=== PATIENT | male | born 1975 | race Two or more races ===

== ENCOUNTER 2024-08-26 16:14 | Outpatient (OUT) | payer BC, SELFPAY ==
--- NOTE | 2024-08-26 | XR_ITS ---
[address] [address] Patient Name: NICOLE CEDILLO MRN: [id number] date: 1975 Sex: M Assigned Patient Location: [facility] Current Patient Location: [facility] Accession/Order Number: [id number] Exam Date: 08/26/2024 18:18 Report Date: 08/26/2024 18:20 At the request of: LUANN AIKEN MD Procedure: XR ribs RT min 3V w CXR1V XR ribs RT min 3V w CXR1V 08/26/2024 4:40 PM SIGNS AND SYMPTOMS: Right rib pain, Pleurodynia PROTOCOL: Frontal radiograph the chest with oblique radiographs of the right ribs COMPARISON: None FINDINGS: The trachea is midline. The heart and mediastinal structures are within normal limits. The lung parenchyma is clear. The bony thorax is intact. Findings suggesting healed or healing lateral right 11th rib. XR/XR ribs RT min 3V w CXR1V IMPRESSION: No acute cardiopulmonary pathology. No acute displaced rib fracture. Findings suggesting healed or healing lateral right 11th rib. Impression dictated by: Fab Aguero M.D.08/26/2024 6:20 PM Dictation Location: [place] [address] Electronically authenticated by: [id number] Y Date: 08/26/2024 18:20
--- NOTE | 2024-08-26 | XR_ITS ---
[facility] [place] [id number] Patient Name: NICOLE CEDILLO MRN: [id number] date: 1975 Sex: M Assigned Patient Location: [facility] Current Patient Location: [facility] Accession/Order Number: [id number] Exam Date: 08/26/2024 18:18 Report Date: 08/26/2024 18:18 At the request of: LUANN AIKEN MD Procedure: XR abdomen 1V XR abdomen 1V 08/26/2024 4:40 PM SIGNS AND SYMPTOMS: ^Right rib pain, pleurodynia PROTOCOL: Frontal radiograph of the abdomen COMPARISON: None FINDINGS: There is a nonobstructive bowel gas pattern. There is a moderate amount of stool throughout colon and rectum. The bony structures are grossly intact. No radiodense renal, ureteral, or bladder stones. XR/XR abdomen 1V IMPRESSION: No acute intra-abdominal pathology. Impression dictated by: Fab Aguero M.D.08/26/2024 6:18 PM Dictation Location: [place] [address] Electronically authenticated by: [id number] Y Date: 08/26/2024 18:18
== END 2024-08-26 16:15 | disposition home or self-care (01) ==
LOC: RAD 16:15
PROVIDERS: PCP Family Medicine; Visit Provider Family Medicine
DX: R07.81 Pleurodynia (principal); S22.31XD Fracture of one rib, right side, subsequent encounter for fracture with routine healing
CPT/HCPCS: 71101; 74018